=== PATIENT | female | born 1975 ===

== ENCOUNTER 2017-07-07 21:07 | Emergency (ER) | payer OTHER ==
[2017-07-07 21:59] VITALS: O2SAT 99
[2017-07-07] MEDS ORDERED: Tdap Vaccine 0.5 ml Vial (10-64 yrs) IM ONE ×2 (22:05→22:40)
--- NOTE | 2017-07-07 22:59 | ED PDOC ---
HPI: Trauma/Fall - HPI Time Seen by Provider: 07/07/17 22:00 Chief Complaint (Nursing): Trauma History Per: Patient Additional Complaint(s): Pt. states 1 hour [employer] she tripped and fell falling face first striking her head onto the pavement. Pt. states also she injured her R hand during the fall. As per pt. she was able to get up on her own and call the ambulance. Denies LOC, N/ V, neck pain, numbness, tingling, previous TBI, anticoagulant use. Past Medical History Reviewed: Historical Data, Nursing Documentation, Vital Signs Vital Signs: Last Vital Signs Temp 99.0 F 07/07/17 21:56 Pulse 76 07/07/17 21:56 Resp 18 07/07/17 21:56 BP 119/82 07/07/17 21:56 Pulse Ox 99 07/07/17 21:56 - Family History Family History: States: No Known Family Hx - Allergies Allergies/Adverse Reactions: Allergies Allergy/AdvReac Type Severity Reaction Status Date / Time No Known Allergies Allergy Verified 07/07/17 21:59 Review of Systems ROS Statement: Except As Marked, All Systems Reviewed And Found Negative Musculoskeletal: Positive for: Hand Pain Neurological: Positive for: Headache Physical Exam - Physical Exam Appears: Positive for: Well, Non-toxic, No Acute Distress Head Exam: Negative for: ATRAUMATIC, NORMAL INSPECTION (large swelling to the R side of forehead), NORMOCEPHALIC Skin: Positive for: Normal Color, Warm. Negative for: Rash Eye Exam: Positive for: Normal appearance, EOMI, PERRL. Negative for: Periorbital swelling, Periorbital tenderness, Conjunctival injection ENT: Positive for: TM Is/Are (no hemotympanum b/l). Negative for: Pharyngeal Erythema, Tonsillar Exudate, Tonsillar Swelling Neck: Positive for: Normal, Painless ROM Pulses-Radial (L): 2+ Pulses-Radial (R): 2+ Back: Positive for: Normal Inspection. Negative for: L CVA Tenderness, R CVA Tenderness, Vertebral Tenderness (including cervical spine) Extremity: Positive for: Normal ROM, Other (superficial abrasions on dorsal R hand; FROM actively of R hand, R hand without swelling, deformity, or tenderness ) Neurologic/Psych: Positive for: Alert, Oriented, Gait (steady, unassisted). Negative for: Aphasia, Facial Droop - ECG O2 Sat by Pulse Oximetry: 99 - Radiology X-Ray: Interpreted by Me (R hand x-ray) X-Ray Interpretation: No Acute Disease - Progress ED Course And Treament: Tylenol 650mg PO, tetanus prophylaxis administered, R hand x-ray, CT head w/o contrast ordered. Disposition - Clinical Impression Clinical Impression: Head injury, Hand abrasion - Patient ED Disposition Is Patient to be Admitted: Transfer of Care (Signed out to Екатерина ALMANZA pending CT results.) - Disposition Disposition Time: 00:00 Condition: STABLE Forms: [facility] (Turkmen)
--- NOTE | 2017-07-08 00:07 | ED PDOC ---
- ECG O2 Sat by Pulse Oximetry: 99 Pulse Ox Interpretation: Normal - Other Rad CT head X-Ray: Read By Radiologist X-Ray Interpretation: negative Medical Decision Making Medical Decision Making: Case was signed out to write from GALE Collier pending CT head results. CT head: no acute finding. Patient was instructed to continue with Tylenol for pain and was asked to follow up with primary doctor in 2-3 days. Disposition - Clinical Impression Clinical Impression: Head injury, Hand abrasion - POA Present On Arrival: None - Disposition Referrals: [facility] [Outside] Disposition: Routine/Home Disposition Time: 00:42 Condition: STABLE Additional Instructions: Tylenol for pain as needed. Follow up with primary doctor in 2-3 days Instructions: Closed Head Injury, Skin Abrasions (DC) Forms: [facility] ([place]err[place])
[2017-07-08] MEDS ORDERED: Bacitracin 500 Units/gm Oint Foilpak UD TOP STA (00:08)
[2017-07-08 00:52] VITALS: BP 97/53; PULSE 71; RESP 16; TEMP 97.5
--- NOTE | 2017-07-08 08:51 | RAD ---
PROCEDURE: Right Hand Radiographs. HISTORY: trauma COMPARISON: None. FINDINGS: BONES: No acute fracture. Questionable large subchondral cyst in the lunate. JOINTS: Unremarkable. SOFT TISSUES: Normal. OTHER FINDINGS: None. IMPRESSION: No demonstrated fracture or dislocation.
--- NOTE | 2017-07-08 08:58 | CT ---
PROCEDURE: CT HEAD WITHOUT CONTRAST. HISTORY: trauma COMPARISON: None available. TECHNIQUE: Axial computed tomography images were obtained through the head/brain without intravenous contrast. Radiation dose: Total exam DLP = 817.2 mGy-cm. This CT exam was performed using one or more of the following dose reduction techniques: Automated exposure control, adjustment of the mA and/or kV according to patient size, and/or use of iterative reconstruction technique. FINDINGS: HEMORRHAGE: No intracranial hemorrhage. BRAIN: No mass effect or edema. No atrophy or chronic microvascular ischemic changes. VENTRICLES: Unremarkable. No hydrocephalus. CALVARIUM: Unremarkable. PARANASAL SINUSES: Non pneumatization of the left frontal sinus. No significant inflammatory changes. MASTOID AIR CELLS: Unremarkable as visualized. No inflammatory changes. OTHER FINDINGS: Right frontal scalp swelling. IMPRESSION: Right frontal scalp swelling. No calvarial fracture. No acute intracranial hemorrhage.
== END 2017-07-08 00:52 | disposition home or self-care (01) ==
LOC: H.ER 21:07
DX: S09.90XA Unspecified injury of head, initial encounter (principal); S60.519A Abrasion of unspecified hand, initial encounter; W01.0XXA Fall on same level from slipping, tripping and stumbling without subsequent striking against object, initial encounter